=== PATIENT | male | born 1945 | race Caucasian/White ===

== ENCOUNTER → 2024-04-13 15:25 | Outpatient (REF) | payer MEDICARE, OTHER, SELFPAY | LOC: RAD 15:25 | PROVIDERS: ATTENDING PHYSICIAN Internal Medicine Gastroenterology; FAMILY PHYSICIAN Family Medicine | DX: K59.9 Functional intestinal disorder, unspecified (principal); R10.84 Generalized abdominal pain | CPT/HCPCS: 74177; Q9967 ==

== ENCOUNTER → 2024-09-18 07:19 | Outpatient (REF) | payer MEDICARE, OTHER, SELFPAY | LOC: MRI 3T 07:19 | PROVIDERS: ATTENDING PHYSICIAN Physical Medicine & Rehabilitation; FAMILY PHYSICIAN Family Medicine | DX: M54.16 Radiculopathy, lumbar region (principal); Z01.818 Encounter for other preprocedural examination | CPT/HCPCS: 72148; 93005 ==